=== PATIENT | male | born 1930 | race Two or more races ===

== ENCOUNTER 2017-04-22 07:03 | Inpatient (IN) | payer MEDICARE ==
[~2017-04-22] VITALS: Ht 165.1 cm; Wt 69.2 kg
[2017-04-22] MEDS ORDERED: methylPREDNISolone SOD SUCC 125 MG/2 ML IVP ONE (08:00)
[2017-04-22] MEDS ORDERED: SODIUM CHLORIDE FLUSH 10ML SYR IVF ONE (08:00)
[2017-04-22] MEDS ORDERED: ALBUTEROL/IPRATROPIUM 2.5MG/0.5MG, 3 ML ONE ×3 (08:13→11:56)
[2017-04-22 08:18] LABS: HEMATOCRIT 48.5 % (39.2-51.8); HEMOGLOBIN 16.4 g/dL (13.7-18.0)
[2017-04-22] MEDS: ALBUTEROL/IPRATROPIUM 2.5MG/0.5MG, 3 ML NPPB SCH ×5 (08:23→20:00)
[2017-04-22 08:28] LABS: ASPARTATE AMINO TRANSFERASE 33 U/L (15-37); BLOOD UREA NITROGEN 14 mg/dL (7-18)
[2017-04-22 08:33] LABS: IS PT STATUS REG ER OR PRE ER? YES
[2017-04-22] MEDS ORDERED: methylPREDNISolone SOD SUCC 125 MG/2 ML ONE (08:42)
[2017-04-22] MEDS ORDERED: ACET325C PO (10:01)
[2017-04-22] MEDS ORDERED: ONDANSETRON 2MG/ML, 2ML IVPush PRN (11:00)
[2017-04-22] MEDS ORDERED: SODIUM CHLORIDE FLUSH 10ML SYR IVF PRN (11:00)
[2017-04-22] MEDS ORDERED: LABETALOL 5MG/ML, 20ML IVPush PRN (11:00)
[2017-04-22] MEDS ORDERED: morphine SULFATE 10 MG/ML, 1ML IVPush PRN (11:00)
[2017-04-22] MEDS ORDERED: ONDANSETRON ODT 4 MG PO PRN (11:00)
[2017-04-22] MEDS ORDERED: HYDROcodone/APAP 5/325 TABLET PO PRN (11:00)
[2017-04-22] MEDS ORDERED: POLYETHYLENE GLYCOL 17 GM PACKET PO PRN (11:00)
[2017-04-22 12:51] LABS: RAPID INFLUENZA A Negative (Negative); RAPID INFLUENZA B Negative (Negative)
[2017-04-22] MEDS: methylPREDNISolone SOD SUCC 125 MG/2 ML IVPush SCH ×2 (13:52→20:30)
[2017-04-22] MEDS: ENOXAPARIN 40 MG/0.4 ML SQ SCH (13:52)
[2017-04-22 14:47] VITALS: BP 129/68
[2017-04-22 15:16] LABS: IS PT STATUS REG ER OR PRE ER? NO
[2017-04-22] MEDS ORDERED: CEFTRIAXONE PMX 1GM/50ML 50 ML IV SCH (17:30)
[2017-04-22] MEDS ORDERED: SODIUM CHLORIDE 0.9%, 500ML IVBOLUS ONE (17:30)
[2017-04-22] MEDS: SODIUM CHLORIDE 0.9% 1,000 ML IV SCH (20:31)
[2017-04-22 20:50] LABS: IS PT STATUS REG ER OR PRE ER? NO
[2017-04-22 21:00] VITALS: BP 132/64
[2017-04-22] MEDS: DOXYCYCLINE 100MG TABLET PO SCH (22:00)
[2017-04-22] MEDS ORDERED: OMNIPAQUE 350 MG/ML, 75ML BOTTLE ONE (22:51)
[2017-04-23] MEDS: methylPREDNISolone SOD SUCC 125 MG/2 ML IVPush SCH ×4 (02:58→20:40)
[2017-04-23 03:40] VITALS: BP 131/66
[2017-04-23 04:59] LABS: HEMATOCRIT 43.4 % (39.2-51.8); HEMOGLOBIN 14.7 g/dL (13.7-18.0); WHITE BLOOD COUNT 10.3 x10^3/uL (3.4-10)
[2017-04-23 05:08] LABS: BLOOD UREA NITROGEN 21 mg/dL (7-18)
[2017-04-23 05:13] LABS: ASPARTATE AMINO TRANSFERASE 45 U/L (15-37)
[2017-04-23] MEDS: ALBUTEROL/IPRATROPIUM 2.5MG/0.5MG, 3 ML NPPB SCH ×4 (06:35→20:14)
[2017-04-23 07:02] VITALS: BP 143/64
[2017-04-23] MEDS: SENNA/DOCUSATE TABLET PO SCH (08:21)
[2017-04-23] MEDS: DOXYCYCLINE 100MG TABLET PO SCH (08:21)
[2017-04-23] MEDS ORDERED: REGADENOSON 0.4 MG/5 ML SYRINGE ONE (08:32)
[2017-04-23] MEDS: SODIUM CHLORIDE 0.9% 1,000 ML IV SCH (11:56)
[2017-04-23] MEDS: ENOXAPARIN 40 MG/0.4 ML SQ SCH (13:03)
[2017-04-23 13:24] VITALS: BP 147/85
[2017-04-23] MEDS ORDERED: GLUCAGON 1 MG IM PRN (19:00)
[2017-04-23] MEDS ORDERED: DEXTROSE 50%, 50ML SYRINGE IVPush PRN (19:00)
[2017-04-23] MEDS ORDERED: DEXTROSE 4 GM TAB.CHEW PO PRN (19:00)
[2017-04-23 19:29] VITALS: BP 153/80
[2017-04-23] MEDS: INSULIN ASPART 100 UNITS/ML, PEN SQ-INSULIN SCH (21:52)
[2017-04-24 00:51] VITALS: BP 164/88
[2017-04-24] MEDS: SODIUM CHLORIDE 0.9% 1,000 ML IV SCH (01:11)
[2017-04-24] MEDS: methylPREDNISolone SOD SUCC 125 MG/2 ML IVPush SCH ×2 (02:53→08:36)
[2017-04-24 04:45] LABS: HEMATOCRIT 45.1 % (39.2-51.8); HEMOGLOBIN 14.9 g/dL (13.7-18.0); WHITE BLOOD COUNT 16.6 x10^3/uL (3.4-10)
[2017-04-24 04:56] LABS: ASPARTATE AMINO TRANSFERASE 42 U/L (15-37); BLOOD UREA NITROGEN 24 mg/dL (7-18)
[2017-04-24 07:09] VITALS: BP 142/86
[2017-04-24] MEDS: ALBUTEROL/IPRATROPIUM 2.5MG/0.5MG, 3 ML NPPB SCH ×4 (07:45→19:47)
[2017-04-24] MEDS: INSULIN ASPART 100 UNITS/ML, PEN SQ-INSULIN SCH ×4 (08:36→21:31)
[2017-04-24] MEDS: SENNA/DOCUSATE TABLET PO SCH (08:36)
[2017-04-24] MEDS: LISINOPRIL 10 MG TABLET PO SCH (11:46)
[2017-04-24] MEDS: INSULIN DETEMIR 100 UNITS/ML, PEN SQ-INSULIN SCH ×2 (11:48→21:30)
[2017-04-24 14:41] VITALS: BP 127/72
[2017-04-24] MEDS: metFORMIN 850 MG TABLET PO SCH (16:24)
[2017-04-24] MEDS: ENOXAPARIN 40 MG/0.4 ML SQ SCH (16:25)
[2017-04-24] MEDS ORDERED: METOPROLOL TARTRATE 25 MG TABLET PO SCH (18:00)
[2017-04-24] MEDS: METOPROLOL TARTRATE 25 MG TABLET PO SCH ×2 (18:00→18:27)
[2017-04-24 20:08] VITALS: BP 130/77
[2017-04-24] MEDS: GUAIFENESIN/DM 200-20MG, 10ML UDC PO PRN (21:38)
[2017-04-24 22:06] LABS: HDL CHOLESTEROL 52 mg/dL (>39); HDL-P (TOTAL) 27.1 umol/L (>=30.5); LDL CHOLESTEROL CALC 98 mg/dL (0-99); LDL SIZE 20.6 nm (>20.5); NON-HDL CHOLESTEROL 111 mg/dL (0-129); SMALL LDL-P 330 nmol/L (<=527); TRIGLYCERIDES 63 mg/dL (0-149)
[2017-04-25 02:00] VITALS: BP 129/73
[2017-04-25 03:06] LABS: LDL-P 1083 nmol/L (<1000); LP-INSULIN RESISTANCE SCORE <25 (<=45)
[2017-04-25 05:38] LABS: HEMATOCRIT 44.4 % (39.2-51.8); HEMOGLOBIN 14.8 g/dL (13.7-18.0); WHITE BLOOD COUNT 14.1 x10^3/uL (3.4-10)
[2017-04-25 05:57] LABS: BLOOD UREA NITROGEN 22 mg/dL (7-18)
[2017-04-25 06:00] LABS: ASPARTATE AMINO TRANSFERASE 37 U/L (15-37)
[2017-04-25] MEDS: METOPROLOL TARTRATE 25 MG TABLET PO SCH ×2 (06:17→16:38)
[2017-04-25 07:13] VITALS: BP 138/87
[2017-04-25] MEDS: ALBUTEROL/IPRATROPIUM 2.5MG/0.5MG, 3 ML NPPB SCH ×4 (07:38→20:00)
[2017-04-25] MEDS ORDERED: FUROSEMIDE 40 MG/4 ML IV ONE (08:30)
[2017-04-25] MEDS: SENNA/DOCUSATE TABLET PO SCH (09:00)
[2017-04-25] MEDS: metFORMIN 850 MG TABLET PO SCH ×2 (09:19→16:38)
[2017-04-25] MEDS: LISINOPRIL 10 MG TABLET PO SCH (09:19)
[2017-04-25] MEDS: INSULIN DETEMIR 100 UNITS/ML, PEN SQ-INSULIN SCH ×2 (09:20→21:30)
[2017-04-25] MEDS: INSULIN ASPART 100 UNITS/ML, PEN SQ-INSULIN SCH ×4 (09:20→21:00)
[2017-04-25] MEDS: ENOXAPARIN 40 MG/0.4 ML SQ SCH (12:52)
[2017-04-25 15:32] VITALS: BP 135/75
[2017-04-25] MEDS: GUAIFENESIN 200 MG TABLET PO SCH ×2 (16:37→21:52)
[2017-04-25 18:20] VITALS: BP 121/78
[2017-04-25] MEDS: GUAIFENESIN/DM 200-20MG, 10ML UDC PO PRN (21:52)
[2017-04-26 02:00] VITALS: BP_SYST 126; BP_SYST 137; BP_DIAS 63; BP_DIAS 75
[2017-04-26] MEDS: METOPROLOL TARTRATE 25 MG TABLET PO SCH (05:33)
[2017-04-26] MEDS: GUAIFENESIN 200 MG TABLET PO SCH ×2 (05:36→09:28)
[2017-04-26 06:16] LABS: BLOOD UREA NITROGEN 22 mg/dL (7-18)
[2017-04-26] MEDS: ALBUTEROL/IPRATROPIUM 2.5MG/0.5MG, 3 ML NPPB SCH ×2 (06:38→11:00)
[2017-04-26] MEDS: INSULIN ASPART 100 UNITS/ML, PEN SQ-INSULIN SCH ×2 (07:00→12:41)
[2017-04-26] MEDS: SENNA/DOCUSATE TABLET PO SCH (09:00)
[2017-04-26] MEDS: FUROSEMIDE 40 MG/4 ML IV SCH ×2 (09:00→09:28)
[2017-04-26 09:27] VITALS: BP 133/78
[2017-04-26] MEDS: LISINOPRIL 10 MG TABLET PO SCH (09:28)
[2017-04-26] MEDS: INSULIN DETEMIR 100 UNITS/ML, PEN SQ-INSULIN SCH (09:28)
[2017-04-26] MEDS: metFORMIN 850 MG TABLET PO SCH (09:29)
[2017-04-26] MEDS: ENOXAPARIN 40 MG/0.4 ML SQ SCH (12:41)
[2017-04-26 13:55] VITALS: BP 138/76
[2017-04-26] MEDS ORDERED: ALBUTEROL/IPRATROPIUM 2.5MG/0.5MG, 3 ML NPPB PRN (14:00)
[2017-04-26] MEDS ORDERED: PRED20TA PO (14:10)
[2017-04-26] MEDS ORDERED: GLIP5TAB10 PO (14:10)
[2017-04-26] MEDS ORDERED: LISI-167 PO (14:10)
[2017-04-26] MEDS ORDERED: BUDE10.2 INH (14:10)
[2017-04-26] MEDS ORDERED: GUAI200T3 PO (14:10)
[2017-04-26] MEDS ORDERED: METO25TA35 PO (14:10)
[2017-04-26] MEDS ORDERED: FURO-93 PO (14:10)
[2017-04-26] MEDS ORDERED: IPRA3AMP NPPB (14:14)
[2017-04-26] MEDS ORDERED: FLU VACC QS2017-18 (36MOS+) UP/PF 0.5 ML IM-VACC ONE (15:30)
[2017-04-26] MEDS ORDERED: METF850T2 PO (16:12)
== END 2017-04-26 15:37 | disposition home or self-care (01) | DRG 871 ==
LOC: EDBD 08:45 → ED 08:45 → EDIP 10:32 → EDBD 10:32 → 4WST 13:04
PROVIDERS: ADMIT Internal Medicine; ATTEND Internal Medicine
DX: A41.9 Sepsis, unspecified organism (principal); J96.01 Acute respiratory failure with hypoxia; J44.1 Chronic obstructive pulmonary disease with (acute) exacerbation; I50.30 Unspecified diastolic (congestive) heart failure; E11.649 Type 2 diabetes mellitus with hypoglycemia without coma; I11.0 Hypertensive heart disease with heart failure; Z79.899 Other long term (current) drug therapy; Z87.891 Personal history of nicotine dependence
CPT/HCPCS: 36415; 71020; 71260; 78452; 80048; 80053; 80061; 81003; 82040; 82962; 83036; 83605; 83704; 83735; 83880; 84484; 85025; 85379; 85610; 85730; 87040; 87400; 90686; 93005; 93017; 93306; 94640; 96374; J0696; J1650; J1815; J1940; J2785; J7620; Q9967; A9502; C9898; J2930; J7030; J7040; J7512

== ENCOUNTER → 2017-08-14 | Outpatient (CLI) | payer MEDICARE ==
[~2017-08-14] MED LIST: ACET325C PO; BUDE10.2 INH; FURO-93 PO; GLIP5TAB10 PO; GUAI200T3 PO; IPRA3AMP NPPB; LISI-167 PO; METF850T2 PO; METO25TA35 PO; PRED20TA PO
== END | disposition home or self-care (01) ==
LOC: CARD 14:26
PROVIDERS: ATTEND Family Medicine
DX: R09.02 Hypoxemia (principal)
CPT/HCPCS: 94010; 94060

== ENCOUNTER → 2018-08-13 | Outpatient (CLI) | payer MEDICARE ==
[~2018-08-13] MED LIST changes: -ACET325C PO; +ACET325C3 PO; -IPRA3AMP NPPB; +IPRA3AMP30 NPPB; +METF850T10 PO; -METF850T2 PO
== END | disposition home or self-care (01) ==
LOC: CVU 15:55
PROVIDERS: ATTEND Internal Medicine Cardiovascular Disease
DX: I08.0 Rheumatic disorders of both mitral and aortic valves (principal); I11.0 Hypertensive heart disease with heart failure; I50.9 Heart failure, unspecified; Z87.891 Personal history of nicotine dependence
CPT/HCPCS: 93306